=== PATIENT | female | born 1950 | race Caucasian/White ===

== ENCOUNTER 2017-02-04 10:29 | Inpatient (IN) | payer MEDICARE ==
[~2017-02-04] VITALS: Ht 162.6 cm; Wt 58.5 kg
[2017-02-04 10:46] VITALS: BP 140/69; BMI 22.9
[2017-02-04] MEDS ORDERED: ARICEPT10 MG PO (11:49)
[2017-02-04] MEDS ORDERED: SEROQUEL200 MG PO (11:50)
[2017-02-04] MEDS ORDERED: NAMENDA10 MG PO (11:50)
[2017-02-04] MEDS ORDERED: SEROQUEL300 MG PO (11:51)
--- NOTE | 2017-02-04 12:12 | NUR ---
PATIENT ADMITTED TO [facility] WITH HX OF DEMENTIA, REFERRED TO [facility] BY DR. RAMOS. PATIENT IS AWAKE AND ALERT, SHE IS ORIENTED TO SELF ONLY. SPOUSE SAYS SHE HAS BEEN HALLUCINATING. SHE IS SEEING AND TALKING TO PEOPLE THAT ARE NOT THERE. PATIENT HAS HAD NO ILLNESSES OR SURGERIES. PATIENT HAS IMPLANTS TO UPPER AND LOWER TEETH. SHE IS A POOR HISTORIAN SHE DOES NOT COMPREHEND. PATIENT WILL FREQUENTLY ASK YOU TO REPEAT A QUESTION. PATIENT'S ONLY JUDD ON HER BODY ARE SOME PINK AREAS ON HER BILATERAL FEET WHERE HER SHOES RUB ON EITHER SIDE OF EACH FOOT. PATIENT WEARS GLASSES TO SEE. THEY ARE YELLOW METAL WITH A BROWN PLASTIC FRAME. SHE IS NEAT AND WELL CARED FOR BY HER SPOUSE OF 30+ YEARS.
--- NOTE | 2017-02-04 12:30 | NUR ---
STAFF HAVE WITNESSED PATIENT HAVING FULL CONVERSATIONS WITH OTHERS THAT ARE NOT PRESENT.
[2017-02-04 15:13] LABS: BASOPHILS 0.3 % (0-2); EOSINOPHILS 1.7 % (0-7); HEMATOCRIT 37.6 % (36.0-48.0); HEMOGLOBIN 12.2 g/dL (12-16); IMMATURE GRANULOCYTES 0.2 % (0-5); LYMPHOCYTES 14.9 % (15-50); MCH 30.3 pg (26.0-34.0); MCHC 32.4 g/dL (31.0-37.0); MCV 93.3 fL (80.0-100.0); MONOCYTES 15.5 % (2-11); NEUTROPHILS 67.4 % (40-80); PLATELET COUNT 248 10x3/uL (130-400); RBC 4.03 10x6/uL (4.00-5.40); RDW 12.3 % (11.5-14.5); WBC 6.7 10x3/uL (4.8-10.8)
[2017-02-04 15:42] LABS: ALBUMIN 3.4 g/dL (3.4-5.0); ALKALINE PHOSPHATASE 131 U/L (46-116); ALT (SGPT) 23 U/L (10-68); BILIRUBIN - TOTAL 0.22 mg/dL (0.2-1.3); CALC OSMOLALITY 287 mosm/kg (275-300); CALCIUM 8.6 mg/dL (8.5-10.1); CARBON DIOXIDE 35.9 mmol/L (21.0-32.0); CHLORIDE - SERUM 104 mmol/L (98-107); CHOL - HDL RATIO 4.5 ratio (2.3-4.1); CHOLESTEROL, TOTAL 298 mg/dL (0-200); CREATININE - SERUM 0.8 mg/dL (0.6-1.3); GLUCOSE 96 mg/dL (74-106); HDL CHOLESTEROL 67 mg/dL (32-96); LDL CHOLESTEROL 210 mg/dL (0-100); LDL-HDL RATIO 3.1 ratio (1.5-3.5); POTASSIUM - SERUM 3.8 mmol/L (3.5-5.1); PROTEIN - SERUM 7.1 g/dL (6.4-8.2); SODIUM 145 mmol/L (136-145); THYROID STIMULATING HORMONE 1.65 uIU/mL (0.36-3.74); TRIGLYCERIDE 106 mg/dL (30-200); UREA NITROGEN 11 mg/dL (7-18); eGFR NON AFRICAN AMERICAN 76 mL/min (90-120)
--- NOTE | 2017-02-04 17:00 | NUR ---
PATIENT IS TALKING TO HERSELF AND SHE IS ABLE TO KEEP HERSELF ENTERTAINED BY LOOKING AT MAGAZINES. SHE IS SOCIABLE AND HAS BEEN PLEASANT, ALTHOUGH, MOSTLY WORD SALAD SPEECH.
[2017-02-04 19:30] VITALS: BP 110/82
--- NOTE | 2017-02-05 01:44 | NUR ---
PATIENT ORIENTED TO FIRST NAME ONLY. SHE IS ABLE TO FOLLOW SIMPLE COMMANDS BUT UNABLE TO FOLLOW CONVERSATION. SHE IS COOPERATIVE AND PLEASANT BUT CONFUSED. NO HALLUCINATIONS NOTICED AT THIS TIME. CONTINUE TO MONITOR.
[2017-02-05 07:23] LABS: FOLATE (FOLIC ACID) - SERUM 16.8 ng/mL (>3.0)
[2017-02-05 11:23] VITALS: BP 153/97
--- NOTE | 2017-02-05 16:45 | NUR ---
RECEIVED THIS AM SITTING IN CHAIR IN HALLWAY.IS ORIENTED TO SELF ONLY.ANSWERS TO QUESTIONS HAVE NOTHING TO DO WITH QUESTIONS.EXIT SEEKING.AT ONE TIME ANGRILY TELLS THIS NURSE "DONT TOUCH ME".WILL CONTINUE WITH PLAN OF CARE,MONITOR FOR CHANGES AND SAFETY.
[2017-02-05 19:30] VITALS: BP 150/89
--- NOTE | 2017-02-05 22:45 | NUR ---
Patient in dayroom folding towels. She is pleasant and responds to her name. Oriented to self only, not following coversation. Patient in non-aggressive. She does wander but was redirected. No hallucinations at this time. Continue to monitor.
[2017-02-06 09:27] VITALS: BP 132/76
--- NOTE | 2017-02-06 14:30 | NUR ---
VERY CONFUSED,ORIENTED TO SELF ONLY.ANSWERS TO QUESTIONS HAVE NOTHING TO DO WITH QUESTION ASKED.AMB PER SELF.EXIT SEEKING BUT NOT MUCH YESTERDAY.REFUSED PO MEDS THIS AM.REFUSED BREAKFAST BUT WAS ABLE TO SPOON FEED HER APPROXIMATELY 30% OF LUNCH WHILE TALKING TO HER.WILL CONTINUE WITH PLAN OF CARE,MONITOR FOR CHANGES AND SAFETY.
--- NOTE | 2017-02-06 18:53 | PN ---
PATIENT:CLIFF JENKINS MEDICAL RECORD: [id number] LOCATION:[facility] ADMISSION DATE: 02/04/17 PROGRESS NOTE DATE OF SERVICE: 02/06/2017 SUBJECTIVE: No new complaint. OBJECTIVE: The patient has been very exit seeking, but aside from that, has not presented a behavioral challenge. She has been compliant with medication. On exam, mood is somewhat perplexed. Affect is shallow. Speech is tangential. Content of thought has been positive for recent visual hallucinosis. The patient has been observed talking to unseen people. Sensorium shows no change. ASSESSMENT: No change in diagnosis. PLAN: 1. Maintain current medications. 2. Continue supportive therapy. TRANSINT:[id number] Voice Confirmation ID: [id number] DOCUMENT ID: [id number] CRYSTAL WEST III, MD at 1853 CC: [id number] DICTATION DATE: 02/06/17 0806 PASTE UP WORKER: 02/06/17 1056 ADM IN [id number] [place] [address]
--- NOTE | 2017-02-06 18:53 | HP ---
PATIENT: CLIFF JENKINS MEDICAL RECORD: [id number] ACCOUNT: [id number] LOCATION:[facility] Magallanes0 : 50 ADMISSION DATE: 02/04/17 HISTORY AND PHYSICAL EXAMINATION Initial Psychiatric Workup IDENTIFYING DATA: This is the first [facility] admission for this 66-year-old white female. HISTORY OF PRESENT ILLNESS: This patient has a well-established diagnosis of Alzheimer dementia. This diagnosis has been in place for over 2 years. She has been followed on an outpatient basis by Dr. Venancio Villanueav. She has had numerous psychological testing by Dr. Tracy Alas, which indeed confirms the presence of significant dementia. The patient has been managed on an outpatient basis reasonably well until recently. She is already taking maximum doses of Aricept and Namenda 20 mg at bedtime and 10 mg b.i.d., respectively. Neuropsychological testing does indicate significant dementia. Because of worsening psychosis, the patient has been placed on increasing doses of Seroquel. At the time of admission, the patient was taking 200 mg of Seroquel in the morning and 300 mg in the evening. She was having visual hallucinations ____. She was having difficulty recognizing her and was showing increasing agitation. Because of markedly worsened cognition and behavioral disturbance, the patient is now admitted. PAST MEDICAL HISTORY: Relatively unremarkable. MEDICATIONS: ____. PAST SURGICAL HISTORY: Noncontributory. ALLERGIES: None listed. FAMILY HISTORY: Noncontributory. SOCIAL HISTORY: The patient has been for over 30 years. No substance abuse issues are noted. The is very actively involved in his 's care. MENTAL STATUS: On exam, the patient is reasonably cooperative and pleasant. She is quite confused. Mood is perplexed. Affect is rather shallow. Speech tends to be tangential. Content of thought is positive for recent psychotic symptoms, specifically visual hallucinations. Sensorium testing, the patient is oriented only to person. She does not know where she is, nor what the circumstances are. Remote, intermediate and short-term recall are severely impaired. Insight is minimal. 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 AXIS II: No diagnosis. AXIS III: No diagnosis. AXIS IV: Severe. HISTORY AND PHYSICAL [id number] CLIFF JENKINS AXIS V: 34. PLAN: 1. The patient will be admitted for further evaluation and psychiatric workup. 2. Medication adjustment as indicated. 3. Daily supportive therapy. TRANSINT:[id number] Voice Confirmation ID: [id number] DOCUMENT ID: [id number] CRYSTAL WEST III, MD at 1853 CC: [id number] DICTATION DATE: 02/04/17 145 HAND GRINDER: 02/04/17 1844 ADM IN [id number] [place] [address]
[2017-02-06 19:20] VITALS: BP 133/72
--- NOTE | 2017-02-06 19:33 | NUR ---
RECEIVED IN DINING AREA. SITTING BY HERSELF READING THE PAPER. CONFUSED. ORIENTED TO SELF ONLY. CALM AND COOPERATIVE WITH CARE AND ASSESSMENT. REORIENT AND REDIRECT NEEDED. CONTINUES TO SIT QUIETLY BY HERSELF. CONTINUE PLAN OF CARE
[2017-02-07 07:00] VITALS: BP 141/83
[2017-02-07 08:10] LABS: VITAMIN D 25 HYDROXY 22.6 ng/mL (30.0-100.0)
--- NOTE | 2017-02-07 14:36 | NUR ---
B.) Alert and oriented to self only, no orientation to place or situation. Uncooperative with unit milieu this am. I.) Administer medications and monitor compliance, redirect and reorient. Monitor for any escalation of behavior. Monitor safety. R.) Compliant with medications, patient requires simple word by word and demonstation to take medications, could not comprehend putting medications in mouth and using straw to drink, required repeatative instuction and demonstration. Difficulty with instructions and redirection with am care, aggresive and combative, screaming, swinging arms and pushing tech with am care, difficult to redirect to appropriate behavior, wanders around exit seeking pushing on doors. No evidence of orientation due to impaired ability to comprehend, process and retain information. Difficulty with directions and conversation. Safety maintained. P.) Continue plan of care.
--- NOTE | 2017-02-07 19:33 | NUR ---
RECEIVED IN DINING ROOM AREA. WALKING ABOUT. CONFUSED BUT SMILING. CALM AND COOPERATIVE WITH CARE AND ASSESSMENT. NO SIGNS OF AGGRESSION. NO SIGNS OF HALLUCINATIONS. REDIRECT AND REORIENT NEEDED. CONTINUES TO BE CALM AND COOPERATIVE CONTINUE PLAN OF CARE
[2017-02-07 20:00] VITALS: BP 140/89
--- NOTE | 2017-02-08 07:46 | PN ---
PATIENT:CLIFF JENKINS MEDICAL RECORD: [id number] LOCATION:[facility] Adriana112 ADMISSION DATE: 02/04/17 PROGRESS NOTE DATE OF SERVICE: 02/07/2017 SUBJECTIVE: No coherent complaint. The patient states" ____ here." OBJECTIVE: Staff report the patient has done well. She is occasionally anxious, but is easy to redirect. She is currently taking Aricept 20 mg h.s., Namenda 10 mg b.i.d., and Geodon 60 mg b.i.d. and is tolerating these quite well. On exam, mood is for the most part is euthymic. Affect is shallow and childlike. Speech is tangential. Content of thought is positive for delusional ideation due to her sensorium deficits. Sensorium itself is unchanged. ASSESSMENT: No change in diagnosis. PLAN: 1. Maintain current medication. 2. Continue supportive therapy. TRANSINT:[id number] Voice Confirmation ID: [id number] DOCUMENT ID: [id number] CRYSTAL WEST III, MD at 0746 CC: [id number] DICTATION DATE: 02/07/17 1123 BREAKER OFF: 02/07/174 ADM IN [facility] [address] [place] [address]
[2017-02-08 10:54] VITALS: BP 135/76
--- NOTE | 2017-02-08 11:27 | NUR ---
Received this am, alert and some what oriented to name, does'nt recognize her name when called, takes several attempts to get patients attention, blank look on face. Redirect and reorient, Encourage and push fluids and supplements, assist with meals. Unable to process information, difficulty following simple intructions. Unable to retain information. No evidence of reorientation.Had to be fed breakfast, consumed 100 %. Compliant with medications, wanders around exit seeking. No aggression. No suicidial statements. Safety maintained. Continue plan of care.
[2017-02-08 19:11] VITALS: BP 119/74
--- NOTE | 2017-02-08 19:23 | NUR ---
RECEIVED IN DAYROOM. WALKING ABOUT ROOM. VERY CONFUSED. CALM AND COOPERATIVE WITH CARE AND ASSESSMENT. NO SIGNS OF AGGRESSION. SITTING IN HALLWAY QUIETLY AT THIS TIME. REDIRECT AND REORIENT NEEDED. CONTINUE PLAN OF CARE
[2017-02-09 08:40] VITALS: BP 155/83
[2017-02-09 10:29] VITALS: Ht 162.6 cm; Wt 58.5 kg
--- NOTE | 2017-02-09 10:45 | PN ---
PATIENT:CLIFF JENKINS MEDICAL RECORD: [id number] LOCATION:[facility] ADMISSION DATE: 02/04/17 PROGRESS NOTE DATE OF SERVICE: 02/08/2017 SUBJECTIVE: No new complaint. OBJECTIVE: The patient has been cooperative for the most part. She does show rather poor oral intake. She has not been particularly agitated. On exam, mood is euthymic. Affect is very constricted. Speech is terse. Content of thought is negative for overt psychosis. Sensorium unchanged. ASSESSMENT: No change in diagnosis. PLAN: 1. We will continue current medications. 2. May add appetite stimulants in the near future. 3. Continue supportive therapy. TRANSINT:[id number] Voice Confirmation ID: [id number] DOCUMENT ID: [id number] CRYSTAL WEST III, MD at 1045 CC: [id number] DICTATION DATE: 02/08/17 1212 INTERACTIVE ACCOUNT MANAGER: 02/08/17 1902 ADM IN [facility] [address] [id number]
--- NOTE | 2017-02-09 12:03 | NUR ---
B) Alert, quiet, cooperative with meds, confused, speaks occasionally, no aggression reported. I) Admin meds as ordered, provided music therapy this a.m. R) Med compliant, no s/s adverse reaction noted, appetite continues poor, requires feeding per staff. P) Cont plan of care, including medications and group therapy, encourage increased meal consumption.
[2017-02-09 19:24] VITALS: BP 130/73
--- NOTE | 2017-02-09 21:34 | NUR ---
Patient in chair in hallway. Oriented to self only. Compliant with medication, calm, pleasant and smiling. Patient reoriented. She asked about her and her children and spoke about her son's girlfriend. Patient seemed to be lucid at that time. No needs expressed at that time. Patient resting comfortably, juany alarm in place. Continue to monitor, continue plan of care.
--- NOTE | 2017-02-10 06:01 | PN ---
PATIENT:CLIFF JENKINS MEDICAL RECORD: [id number] LOCATION:[facility] ADMISSION DATE: 02/04/17 PROGRESS NOTE DATE OF SERVICE: 02/09/2017 SUBJECTIVE: No new complaint. OBJECTIVE: The patient is taking her medications reasonably well. She still eats rather poorly. She remains very confused. No aggression, however. On exam, mood is for the most part euthymic. Affect very shallow, childlike. Speech is terse. Content of thought is negative for overt psychosis. Sensorium shows no change. ASSESSMENT: No change in diagnosis. PLAN: 1. Maintain current medications. 2. Continue supportive therapy. TRANSINT:[id number] Voice Confirmation ID: [id number] DOCUMENT ID: [id number] CRYSTAL WEST III, MD at 0601 CC: [id number] DICTATION DATE: 02/09/17 1120 SERVOMECHANISM DESIGNER: 02/09/17 1837 ADM IN [place] [id number] [place] [address]
[2017-02-10] MEDS ORDERED: MEGACE400 MG/10 PO (11:12)
[2017-02-10] MEDS ORDERED: VITAMIN D31000 UNI2 PO (11:13)
[2017-02-10] MEDS ORDERED: VITAMIN B-12500 MC1 PO (11:13)
[2017-02-10] MEDS ORDERED: GEODON20 MG PO (11:13)
[2017-02-10 12:35] VITALS: BP 121/89
--- NOTE | 2017-02-10 13:23 | NUR ---
ORIENTED TO PERSON ONLY. PT HAS HAD NO AGGRESSION. SHE IS LETHARGIC TODAY BUT EASILY AROUSED WHEN NEEDED. COOPERATIVE WITH CARE. MEDICATIONS ADMINISTERED ORDERED. REDIRECTED NEEDED. FALL PRECAUTIONS MAINTAINED. RAIZA ALARMS IN PLACE AND AUDIBLE. WILL CONTINUE TO MONITOR AND CONTINUE WITH PLAN OF CARE.
--- NOTE | 2017-02-10 18:20 | NUR ---
PATIENT IS WALKING AROUND LOOKING OUT OF THE WINDOWS. SHE IS CONFUSED. SHE KNOWS HER NAME ONLY. SHE DOES KEEP LOOKING AT THE BOOKS ON THE TABLE AND PICKING UP NEWSPAPER.
[2017-02-10 19:24] VITALS: BP 131/73
--- NOTE | 2017-02-10 21:16 | NUR ---
Patient in dayroom. Oriented to first name only. She was anxious but compliant with medication. She said she wanted out now to see her baby girl. Patient was reoriented and redirected several times, finally settled down and went to bed. continue to monitor.
--- NOTE | 2017-02-11 09:41 | NUR ---
PT WILL DISCHARGE HOME WITH SPOUSE TODAY. ALL BELONGINGS PACKED AND READY. DISCHARGE PAPERWORK HAS BEEN FAXED TO PCP DR. RAMOS WITH A F/U APPT MADE AND PUT ON DISCHARGE PAPERWORK. VSS. NO AGGRESSION NOTED. NO SIGNS OF HALLUCINATIONS. DENIES SI. MEDICATIONS GIVEN ORDERED. REDIRECTED NEEDED. PT ORIENTED TO PERSON ONLY. FALL PRECAUTIONS MAINTAINED. WILL CONTINUE TO MONITOR AND CONTINUE WITH PLAN OF CARE.
[2017-02-11 11:18] VITALS: BP 132/63
--- NOTE | 2017-02-12 11:17 | PN ---
PATIENT:CLIFF JENKINS MEDICAL RECORD: [id number] LOCATION:[facility] Wright112 ADMISSION DATE: 02/04/17 PROGRESS NOTE DATE OF SERVICE: 02/11/2017 Psychiatric Progress Note SUBJECTIVE: The patient's case was discussed with staff. She has no new complaint. OBJECTIVE: The patient is in good behavioral control with poor insight about her condition. She tolerates her medicines well. ASSESSMENT: No change in diagnoses. PLAN: I anticipate the patient can reasonably be transitioned out of the hospital today. Her long-term prognosis is guarded. TRANSINT:[id number] Voice Confirmation ID: [id number] DOCUMENT ID: [id number] STACEY KING MD at 1117 CC: [id number] DICTATION DATE: 02/11/17 1159 CHIEF DEPUTY: 02/11/17 2254 DIS IN 02/11/17 [address] [place] [address]
--- NOTE | 2017-02-14 11:37 | PN ---
PATIENT:CLIFF JENKINS MEDICAL RECORD: [id number] LOCATION:[facility] Magall[facility] ADMISSION DATE: 02/04/17 PROGRESS NOTE DATE OF SERVICE: 02/10/2017 SUBJECTIVE: No new complaint. OBJECTIVE: The patient is doing overall better. She is taking her medications without objection. She is more responsive. She is tolerating all medications well. On exam, mood is euthymic. Affect is bland and constricted. Speech is rather terse. Content of thought is negative for overt psychosis. Sensorium shows no change. ASSESSMENT: No change in diagnosis. PLAN: 1. Maintain all current medications. 2. I anticipate discharge tomorrow with anticipation of shelter placement. TRANSINT:[id number] Voice Confirmation ID: [id number] DOCUMENT ID: [id number] CRYSTAL WEST III, MD at 1137 CC: [id number] DICTATION DATE: 02/10/17 1116 GAS DISTRIBUTION PLANT OPERATOR: 02/10/17 2030 DIS IN 02/11/17 [id number] [place] [address]
== END 2017-02-11 13:49 | disposition home or self-care (01) | DRG 57 ==
LOC: D.PSYCH 10:29
PROVIDERS: ADMIT Psychiatry & Neurology Psychiatry
DX: G30.9 Alzheimer's disease, unspecified (principal); F02.81 Dementia in other diseases classified elsewhere, unspecified severity, with behavioral disturbance; E53.8 Deficiency of other specified B group vitamins; E55.9 Vitamin D deficiency, unspecified